=== PATIENT | male | born 1935 | race Caucasian/White ===

== ENCOUNTER 2021-01-01 06:20 | Day surgery (SDC) | payer OTHER ==
[~2021-01-01] VITALS: Ht 172.7 cm; Wt 89.8 kg
[~2021-01-01 06:20] MED LIST: ASPI81CH PO; Aspirin EC81 MG PO; CHOL10002 PO; CIPR500 PO; DOCU100 PO; ERGO400 PO; FINA5 PO; FISH OIL 1,2001 EAC7 PO; FISH1000 PO; Flomax0.4 MG PO; GLUCOSAMINE-CH1 EAC7 PO; HYDACE25S PR; HYDR1TAB94 PO; LOSA25 PO; LOSA50 PO; Miralax17 GM PO; NIAC500 PO; SULTRIDS PO; TURMERIC500 M2 PO
--- NOTE | 2021-01-01 07:03 | NUR ---
01/01/21 0703 Ysabel Moseley V PT RESTING IN BED, CALL LIGHT WITHIN REACH, VSS. PT DENIES PAIN AND DISCOMFORT AT THIS TIME.
== END 2021-01-01 08:20 | disposition home or self-care (01) ==
LOC: ORSCSDS 06:20
PROVIDERS: Orthopaedic Surgery
PROC: 0LB70ZZ Excision of Right Hand Tendon, Open Approach (ICD-10-PCS; principal; 2021-01-01 07:30)
PROC: 01N50ZZ Release Median Nerve, Open Approach (ICD-10-PCS; principal; 2021-01-01 07:30)
DX: G56.01 Carpal tunnel syndrome, right upper limb (principal); M67.441 Ganglion, right hand; I10 Essential (primary) hypertension; I25.10 Atherosclerotic heart disease of native coronary artery without angina pectoris; N40.0 Benign prostatic hyperplasia without lower urinary tract symptoms; Z87.891 Personal history of nicotine dependence
CPT/HCPCS: 88305; J2250; J2704; J3010

== ENCOUNTER → 2022-12-01 | Outpatient (CLI) | payer OTHER ==
[~2022-12-01] MED LIST changes: +AMLODIPINE BESYL5 MG PO; +LEVO750 PO; -LOSA25 PO; +TAMS.4ER PO; +TRAZ50 PO
== END | disposition home or self-care (01) ==
LOC: LAB SHORT 09:28 → LAB 09:28
DX: R82.81 Pyuria (principal)
CPT/HCPCS: 87077; 87086; 87186

== ENCOUNTER → 2022-12-01 | Outpatient (CLI) | payer OTHER ==
[~2022-12-01] MED LIST changes: -AMLODIPINE BESYL5 MG PO; -LEVO750 PO; +LOSA25 PO; -TAMS.4ER PO; -TRAZ50 PO
[2022-12-01 08:31] LABS: Albumin, Blood 3.2 g/dL (3.4-5.0); Albumin/Globulin Ratio 0.8 (0.8-1.8); Bilirubin, Total 0.7 mg/dL (0.1-1.0); Bun/Creatinine Ratio 16.4 (12.0-20.0); Calcium, Blood 8.8 mg/dL (8.5-10.1); Creatinine, Blood 1.46 mg/dL (0.60-1.20); Globulin, Blood 4.2 g/dL (2.2-4.0); Potassium, Blood 3.8 mmol/L (3.5-5.5); Total Protein, Blood 7.4 g/dL (6.4-8.2)
[2022-12-01 08:38] LABS: BASOPHILS ABSOLUTE AUTO 0.03 K/mm3 (0.00-0.23); BASOPHILS PERCENT AUTO 0 % (0-2); EOSINOPHILS ABSOLUTE AUTO 0.09 K/mm3 (0.00-0.68); EOSINOPHILS PERCENT AUTO 1 % (0-6); Hematocrit 40.6 % (37.0-53.0); Hemoglobin 13.8 g/dL (13.5-17.5); IMMATURE GRAN ABSOLUTE AUTO 0.89 K/mm3 (0.00-0.10); IMMATURE GRAN PERCENT AUTO 5 % (0-1); LYMPHOCYTES ABSOLUTE AUTO 0.56 K/mm3 (0.84-5.20); LYMPHOCYTES PERCENT AUTO 3 % (21-46); MONOCYTES ABSOLUTE AUTO 1.08 K/mm3 (0.16-1.47); MONOCYTES PERCENT AUTO 6 % (4-13); Mean Corpuscular HGB 29.1 pg (26.0-34.0); Mean Corpuscular Volume 86 fL (80-100); Mean Platelet Volume 10.5 fL (9.1-12.4); NEUTROPHILS ABSOLUTE AUTO 15.53 K/mm3 (1.96-9.15); NEUTROPHILS PERCENT AUTO 85 % (41-73); Platelet Count 178 K/mm3 (150-400); RDW Coefficient Variation 12.9 % (11.7-14.2); RDW Standard Deviation 40.4 fL (35.1-46.3); Red Blood Cell Count 4.75 M/mm3 (4.30-5.90); White Blood Cell Count 18.18 K/mm3 (4.00-11.30)
== END | disposition home or self-care (01) ==
LOC: LAB SHORT 08:04
PROVIDERS: Physician Assistant
DX: R10.9 Unspecified abdominal pain (principal)
CPT/HCPCS: 80053; 83690; 85025

== ENCOUNTER 2022-12-03 16:21 | Inpatient (IN) | payer OTHER ==
[~2022-12-03] VITALS: Ht 172.7 cm; Wt 88.1 kg
[~2022-12-03 16:21] MED LIST changes: -Aspirin EC81 MG PO; -FISH OIL 1,2001 EAC7 PO; -GLUCOSAMINE-CH1 EAC7 PO; -LOSA25 PO; -TURMERIC500 M2 PO
--- NOTE | 2022-12-03 17:23 | NUR ---
1640: DIRECT ADMIT FROM MD OFFICE PT A&O X 4. VSS. PLEASANT, COOPERATIVE WITH ALL CARE. AMBULATES INDEPENDENTLY WITH STRONG STEADY GAIT. PUT IN GOWN & PJ BOTTOMS, PIV STARTED IN L FA WITH 20G X 2 ATTEMPTS. BEING ADMITTED WITH UTI GROWING PSEUDOMONAS REQUIRING IV ANTI BIOTICS. IS AT BEDSIDE. 1720: DR. CLAY AT BEDSIDE. ORDERS RECEIVED FOR REG DIET AND LABS NOW & IN AM. PT DENIES PAIN & NAUSEA.
[2022-12-03 17:42] LABS: BASOPHILS ABSOLUTE AUTO 0.03 K/mm3 (0.00-0.23); BASOPHILS PERCENT AUTO 0 % (0-2); EOSINOPHILS ABSOLUTE AUTO 0.14 K/mm3 (0.00-0.68); EOSINOPHILS PERCENT AUTO 2 % (0-6); Hematocrit 38.4 % (37.0-53.0); Hemoglobin 12.7 g/dL (13.5-17.5); IMMATURE GRAN ABSOLUTE AUTO 0.07 K/mm3 (0.00-0.10); IMMATURE GRAN PERCENT AUTO 1 % (0-1); LYMPHOCYTES PERCENT AUTO 11 % (21-46); MONOCYTES ABSOLUTE AUTO 0.72 K/mm3 (0.16-1.47); MONOCYTES PERCENT AUTO 10 % (4-13); Mean Corpuscular HGB 28.3 pg (26.0-34.0); Mean Corpuscular HGB Conc 33.1 g/dL (31.5-36.5); Mean Corpuscular Volume 86 fL (80-100); NEUTROPHILS ABSOLUTE AUTO 5.84 K/mm3 (1.96-9.15); NEUTROPHILS PERCENT AUTO 77 % (41-73); Platelet Count 195 K/mm3 (150-400); RDW Standard Deviation 40.5 fL (35.1-46.3); Red Blood Cell Count 4.49 M/mm3 (4.30-5.90)
[2022-12-03 18:05] LABS: Bun/Creatinine Ratio 17.8 (12.0-20.0); Calcium, Blood 8.5 mg/dL (8.5-10.1); Creatinine, Blood 1.18 mg/dL (0.60-1.20); Potassium, Blood 3.7 mmol/L (3.5-5.5)
--- NOTE | 2022-12-03 18:38 | NUR ---
SHIFT SUMMARY PT A&O X 4. VSS. ATE 100% DINNER. DENIES PAIN, DISCOMFORT OR NAUSEA. PLEASANT & COOPERATIVE WITH ALL CARE.
[2022-12-03] MEDS ORDERED: AMLODIPINE BESYL5 MG PO (19:21)
[2022-12-03] MEDS ORDERED: TURMERIC500 M2 PO (19:22)
[2022-12-03] MEDS ORDERED: LOSA50 PO (19:22)
[2022-12-03] MEDS ORDERED: Aspirin EC81 MG PO (19:22)
[2022-12-03] MEDS ORDERED: FISH OIL 1,2001 EAC7 PO (19:22)
[2022-12-03] MEDS ORDERED: GLUCOSAMINE-CH1 EAC7 PO (19:22)
[2022-12-04 04:46] LABS: BASOPHILS ABSOLUTE AUTO 0.02 K/mm3 (0.00-0.23); BASOPHILS PERCENT AUTO 0 % (0-2); EOSINOPHILS ABSOLUTE AUTO 0.18 K/mm3 (0.00-0.68); EOSINOPHILS PERCENT AUTO 3 % (0-6); Hematocrit 36.1 % (37.0-53.0); Hemoglobin 12.4 g/dL (13.5-17.5); IMMATURE GRAN ABSOLUTE AUTO 0.05 K/mm3 (0.00-0.10); IMMATURE GRAN PERCENT AUTO 1 % (0-1); LYMPHOCYTES ABSOLUTE AUTO 0.66 K/mm3 (0.84-5.20); LYMPHOCYTES PERCENT AUTO 10 % (21-46); MONOCYTES ABSOLUTE AUTO 0.62 K/mm3 (0.16-1.47); MONOCYTES PERCENT AUTO 9 % (4-13); Mean Corpuscular HGB Conc 34.3 g/dL (31.5-36.5); Mean Corpuscular Volume 85 fL (80-100); Mean Platelet Volume 10.2 fL (9.1-12.4); NEUTROPHILS ABSOLUTE AUTO 5.26 K/mm3 (1.96-9.15); NEUTROPHILS PERCENT AUTO 78 % (41-73); Platelet Count 183 K/mm3 (150-400); RDW Coefficient Variation 12.9 % (11.7-14.2); RDW Standard Deviation 39.4 fL (35.1-46.3); Red Blood Cell Count 4.27 M/mm3 (4.30-5.90); White Blood Cell Count 6.79 K/mm3 (4.00-11.30)
--- NOTE | 2022-12-04 05:43 | NUR ---
SHIFT SUMMARY A&O X4. VSS. DENIES PAIN. INDEPENDENT IN ROOM. PLEASANT AND COOPERATIVE WITH CARE. CALLS APPROPRIATELY. WILL CONTINUE TO MONITR AND FOLLOW POC.
[2022-12-04 06:16] LABS: Bun/Creatinine Ratio 17.6 (12.0-20.0); Calcium, Blood 8.2 mg/dL (8.5-10.1); Creatinine, Blood 1.08 mg/dL (0.60-1.20); Potassium, Blood 3.9 mmol/L (3.5-5.5)
--- NOTE | 2022-12-04 16:48 | NUR ---
DAYSHIFT SUMMARY Patient doing well, AOx4, independent in room. Reports discomfort when voiding, and slight odor, but urine normal in color. Continuing IV ABX for infection. Patient c/o constipation Miralax and Senna given, PRN not effective. Vitals stable. Will continue plan of care.
--- NOTE | 2022-12-04 19:36 | NUR ---
AWAKE, TALKING ON PHONE. NO C/O VOICED. CALL LIGHT IN REACH.
--- NOTE | 2022-12-05 03:20 | NUR ---
[employer]PRENTICE SUMMARY VSS. PLEASANT AFFECT. DISCUSSED UTI WITH NURSE. ANTIBIOTICS ADMINISTERED ORDERED. UP AD SHARON. HAS BEEN RESTING QUIETLY WITH FEW INTERRUPTIONS. CALL LIGHT IN REACH. WILL CONTINUE TO MONITOR
--- NOTE | 2022-12-05 17:03 | NUR ---
Lab notified RN of positive Blood Cultures, Gram + cocci in clusters, notified MD of critical result. New orders for Vancomyacin IV ABX. No changes in condition, vitals stable, afebrile, sats stable on RA. Will continue plan of care.
--- NOTE | 2022-12-05 17:45 | NUR ---
PT IS ALERT AND ORIENTED X4. PT AMBULATES TO THE BATHROOM WITHOUT ASSISTANCE. BLOOD CULTURE CAME BACK POSITIVE. MD NOTIFIED. SEE EMAR. CALL LIGHT IS WITHIN REACH AND BED IS IN THE LOWEST POSITION.
--- NOTE | 2022-12-06 03:25 | NUR ---
SHIFT SUMMARY NO OVERNIGHT EVENTS. CONTINUES IV ABX FOR UTI/POSITIVE BC. PT ORIENTED X4, AMBULATES INDEPENDENTLY. DENIES ANY PAIN/SOB. REPORTING ITCHINESS AND RED BUMPS ON BACK, NEW ORDER FOR BENDADRYL CREAM THAT WAS EFFECTIVE. PT ABLE TO MAKE NEEDS KNOWN, CALL LIGHT IN REACH.
[2022-12-06 05:12] LABS: BASOPHILS ABSOLUTE AUTO 0.02 K/mm3 (0.00-0.23); BASOPHILS PERCENT AUTO 0 % (0-2); EOSINOPHILS ABSOLUTE AUTO 0.25 K/mm3 (0.00-0.68); EOSINOPHILS PERCENT AUTO 4 % (0-6); Hematocrit 35.8 % (37.0-53.0); IMMATURE GRAN ABSOLUTE AUTO 0.16 K/mm3 (0.00-0.10); IMMATURE GRAN PERCENT AUTO 2 % (0-1); LYMPHOCYTES ABSOLUTE AUTO 1.08 K/mm3 (0.84-5.20); LYMPHOCYTES PERCENT AUTO 15 % (21-46); MONOCYTES ABSOLUTE AUTO 0.53 K/mm3 (0.16-1.47); MONOCYTES PERCENT AUTO 8 % (4-13); Mean Corpuscular HGB 28.4 pg (26.0-34.0); Mean Corpuscular HGB Conc 33.5 g/dL (31.5-36.5); Mean Corpuscular Volume 85 fL (80-100); Mean Platelet Volume 10.1 fL (9.1-12.4); NEUTROPHILS ABSOLUTE AUTO 5.05 K/mm3 (1.96-9.15); NEUTROPHILS PERCENT AUTO 71 % (41-73); Platelet Count 243 K/mm3 (150-400); RDW Coefficient Variation 12.9 % (11.7-14.2); RDW Standard Deviation 39.5 fL (35.1-46.3); Red Blood Cell Count 4.22 M/mm3 (4.30-5.90); White Blood Cell Count 7.09 K/mm3 (4.00-11.30)
[2022-12-06 06:58] LABS: Albumin, Blood 2.4 g/dL (3.4-5.0); Albumin/Globulin Ratio 0.6 (0.8-1.8); Bilirubin, Total 0.2 mg/dL (0.1-1.0); Calcium, Blood 8.6 mg/dL (8.5-10.1); Creatinine, Blood 1.06 mg/dL (0.60-1.20); Globulin, Blood 3.7 g/dL (2.2-4.0); Potassium, Blood 4.4 mmol/L (3.5-5.5); Total Protein, Blood 6.1 g/dL (6.4-8.2)
[2022-12-06] MEDS ORDERED: LEVO750 PO (15:27)
[2022-12-06] MEDS ORDERED: TAMS.4ER PO (15:28)
[2022-12-06] MEDS ORDERED: TRAZ50 PO (15:29)
--- NOTE | 2022-12-06 15:52 | NUR ---
PT DISCHARGED WITH 1600 WITH INSTRUCTIONS. GIVEN TRIAL DOSE OF LEVOQUEN TO ENSURE NO ADVERSE REACTION TO ABX, NO NEW RASH OR REACTION NOTED. PT TO F/U TUESDAY DR OLIVAS. RX FAXED TO [facility]. AMBULATED WITH STAFF ASSIST, DECLICED WHEELCHAIR, VERY MOBILE AND STEADY.
== END 2022-12-06 16:02 | disposition home or self-care (01) | DRG 690 ==
LOC: MEDS 16:21
PROVIDERS: ADMIT Family Medicine
DX: N39.0 Urinary tract infection, site not specified (principal); N40.0 Benign prostatic hyperplasia without lower urinary tract symptoms; I25.10 Atherosclerotic heart disease of native coronary artery without angina pectoris; K21.9 Gastro-esophageal reflux disease without esophagitis; G47.00 Insomnia, unspecified; R73.03 Prediabetes; Z66 Do not resuscitate; I72.8 Aneurysm of other specified arteries; D50.9 Iron deficiency anemia, unspecified; I12.9 Hypertensive chronic kidney disease with stage 1 through stage 4 chronic kidney disease, or unspecified chronic kidney disease; N18.9 Chronic kidney disease, unspecified; B96.5 Pseudomonas (aeruginosa) (mallei) (pseudomallei) as the cause of diseases classified elsewhere; Z88.1 Allergy status to other antibiotic agents
CPT/HCPCS: 36415; 80048; 80053; 85025; 87040; A9270; J0692; J1650; J3370; J7050

== ENCOUNTER → 2025-05-23 | Outpatient (CLI) | payer OTHER ==
[~2025-05-23] MED LIST changes: +AMLODIPINE BESYL5 MG PO; +Aspirin EC81 MG PO; +FISH OIL 1,2001 EAC7 PO; +GLUCOSAMINE-CH1 EAC7 PO; +LEVO750 PO; +ROSUVASTATIN CAL5 MG PO; +TAMS.4ER PO; +TRAZ50 PO; +TURMERIC500 M2 PO
[2025-05-23 12:09] LABS: Alanine Aminotransfer (ALT/SGP 19.0 U/L (12-78); Albumin, Blood 3.6 g/dL (3.4-5.0); Albumin/Globulin Ratio 1.0 (0.8-1.8); Anion Gap 5.0 mmol/L (3-11); Aspartate Aminotrans (AST/SGOT 13.0 U/L (12-37); Bilirubin, Total 0.8 mg/dL (0.1-1.0); Blood Urea Nitrogen 21.0 mg/dL (8-24); CO2, Blood 32.0 mmol/L (21-32); Calcium, Blood 8.9 mg/dL (8.5-10.1); Chloride, Blood 101.0 mmol/L (98-108); Creatinine, Blood 1.19 mg/dL (0.60-1.20); Globulin, Blood 3.6 g/dL (2.2-4.0); Glucose, Blood 117.0 mg/dL (70-99); Potassium, Blood 3.2 mmol/L (3.5-5.5); Sodium, Blood 135.0 mmol/L (136-145); Total Protein, Blood 7.2 g/dL (6.4-8.2)
[2025-05-23 12:20] LABS: Alanine Aminotransfer (ALT/SGP 19.0 U/L (12-78); Albumin, Blood 3.7 g/dL (3.4-5.0); Albumin/Globulin Ratio 1.0 (0.8-1.8); Anion Gap 5.0 mmol/L (3-11); Aspartate Aminotrans (AST/SGOT 16.0 U/L (12-37); Bilirubin, Total 0.7 mg/dL (0.1-1.0); Blood Urea Nitrogen 23.0 mg/dL (8-24); CO2, Blood 31.0 mmol/L (21-32); Calcium, Blood 8.8 mg/dL (8.5-10.1); Chloride, Blood 102.0 mmol/L (98-108); Creatinine, Blood 1.22 mg/dL (0.60-1.20); Globulin, Blood 3.6 g/dL (2.2-4.0); Glucose, Blood 110.0 mg/dL (70-99); Potassium, Blood 3.3 mmol/L (3.5-5.5); Sodium, Blood 135.0 mmol/L (136-145); Total Protein, Blood 7.3 g/dL (6.4-8.2)
== END | disposition home or self-care (01) ==
LOC: LAB 09:31 → LAB SHORT 09:31
PROVIDERS: Physician Assistant; Student in an Organized Health Care Education/Training Program
DX: E78.5 Hyperlipidemia, unspecified (principal); I25.10 Atherosclerotic heart disease of native coronary artery without angina pectoris; I13.10 Hypertensive heart and chronic kidney disease without heart failure, with stage 1 through stage 4 chronic kidney disease, or unspecified chronic kidney disease; N18.9 Chronic kidney disease, unspecified; I70.1 Atherosclerosis of renal artery; I72.8 Aneurysm of other specified arteries; R73.03 Prediabetes; Z87.891 Personal history of nicotine dependence; Z95.5 Presence of coronary angioplasty implant and graft
CPT/HCPCS: 36415; 80053; 83036; 83880

== ENCOUNTER 2025-08-01 06:47 | Day surgery (SDC) | payer OTHER ==
[~2025-08-01] VITALS: Ht 172.7 cm; Wt 89.4 kg
[~2025-08-01 06:47] MED LIST changes: +Balanced Salt Epinephrine Irrigation Solution 500 mL IR SCH; +Moxifloxacin HCL 0.5 MG/0.1 ML 0.4MLSYR LEFTEYE SCH; +Ondansetron 4 MG SoluTab MM PRN; +PHENYLEPHRINE\\TROPICAMIDE\\TETRACAINE OPHTHALMIC DILATING SOLN LEFTEYE PRN; +Povidone-Iodine 450 DROP/30 ML Solution LEFTEYE SCH; +Povidone-Iodine 450 DROP/30 ML Solution ONE; +Tetracaine HCl/Pf 0.5% Opth Soln 4 ml ONE; +Triamcinolone Inj Susp 40 MG / ML 1ML Vial ONE; +diazePAM 2 MG,diazePAM 5 MG PO SCH
--- NOTE | 2025-08-01 07:44 | NUR ---
08/01/25 0744 Jacqui Leal PATIENT REPORTED ANXIETY LEVEL AT 2/10 PRIOR TO ADMINISTRATION OF VALIUM 7MG PO @ 0740. PATIENT HAS LISTED ALLERGIES TO LEVOFLOXACIN AND CIPROFLOXACIN. HE STATES HE DOES NOT REMEMBER THE REACTION TO THESE BUT STATES HE BREAKS OUT IN WELTS. PT REPORTS HE HAS BEEN USING ALL OF HIS EYE DROPS AT HOME WITHOUT ANY PROBLEMS. ONE OF THESE LISTED IN CHART WAS OFLOXACIN.
[2025-08-01] MEDS ORDERED: HYDCHL25 PO (07:48)
[2025-08-01] MEDS ORDERED: FUROSEMIDE20 MG PO (07:48)
[2025-08-01] MEDS ORDERED: DUTASTERIDE0.5 M3 PO (07:49)
[2025-08-01] MEDS ORDERED: Glycopyrrolate 0.2 MG/ML 5ML VIAL ONE (08:50)
[2025-08-01] MEDS ORDERED: NS 500 ML IV ONE ×2 (08:52→08:54)
[2025-08-01 09:15] VITALS: BP 129/76
--- NOTE | 2025-08-01 10:45 | NUR ---
08/01/25 1045 ANDRADE MELTON LATE ENTRY: MONITORED PT HR KEEPING IV IN UNTIL DC DUE TO MEDS GIVEN BY ANESTH. FOR BRADYCARDIA DURING OR. PT HR WAS ABOCE BASELINE IN SD. PT AND HIS TOLD BY RN DURING DC INSTRUCTIONS TO F/U WITH HIS [employer]
== END 2025-08-01 09:34 | disposition home or self-care (01) ==
LOC: ORSCSDS 06:47
PROVIDERS: Ophthalmology
PROC: 08RK3JZ Replacement of Left Lens with Synthetic Substitute, Percutaneous Approach (ICD-10-PCS; principal; 2025-08-01 08:30)
DX: H25.812 Combined forms of age-related cataract, left eye (principal); H21.81 Floppy iris syndrome; I10 Essential (primary) hypertension; E78.5 Hyperlipidemia, unspecified; I25.10 Atherosclerotic heart disease of native coronary artery without angina pectoris; I25.2 Old myocardial infarction; N40.0 Benign prostatic hyperplasia without lower urinary tract symptoms; R73.03 Prediabetes; K21.9 Gastro-esophageal reflux disease without esophagitis; Z79.82 Long term (current) use of aspirin; Z79.899 Other long term (current) drug therapy
CPT/HCPCS: A9270; J2003; J3301; V2632